=== PATIENT | male | born 1965 | race Caucasian/White ===

== ENCOUNTER → 2020-08-30 11:11 | Outpatient (CLI) | payer OTHER, SELFPAY ==
--- NOTE | 2020-08-30 | DI.MRI.S_ITS ---
PROCEDURE: MR CERVICAL SPINE WO CON INDICATIONS: Radiculopathy, cervical region TECHNIQUE: Noncontrast sagittal T1 spin echo and T2 fast spin echo, sagittal STIR, foraminal oblique sagittal T2 fast spin echo, and axial gradient echo or T2 fast spin echo through the cervical spine. COMPARISON: None. FINDINGS: Image quality: Excellent. Alignment and Curvature: Straightening of the normal lordotic curvature. Bone Marrow: No fracture. Multilevel degenerative endplate sclerosis and spurring. Diffuse facet arthropathy. Spinal Cord: Visualized spinal cord has normal size and signal. No cerebellar tonsillar herniation. Paraspinous Soft Tissues: No paravertebral masses. Prevertebral soft tissues are normal in thickness. C2-C3: Normal appearance. C3-C4: No canal or left foraminal stenosis. Mild right foraminal narrowing. C4-C5: Mild canal narrowing. Severe right foraminal stenosis with nerve root compression. Mild left foraminal narrowing. C5-C6: Mild canal narrowing. Severe right foraminal stenosis with nerve root compression. Mild left foraminal narrowing C6-C7: Minimal canal narrowing. Severe right foraminal stenosis with nerve root compression. Mild to moderate left-sided foraminal stenosis with nerve root compression. C7-T1: Normal appearance. IMPRESSION: Multilevel cervical spondylosis and facet arthropathy. No high-grade canal stenosis. Diffuse bilateral foraminal stenosis as detailed above, right greater than left at multiple levels as detailed above. Dictated by: Tariq Marcano M.D. on 08/30/2020 at 11:59 Approved by: Tariq Marcano M.D. on 08/30/2020 at 12:05
== END ==
PROVIDERS: PCP Family Medicine; Referring Provider Family Medicine; Visit Provider Family Medicine
DX: M47.22 Other spondylosis with radiculopathy, cervical region (principal); M48.02 Spinal stenosis, cervical region
CPT/HCPCS: 72141

== ENCOUNTER 2020-10-19 12:13 | Emergency (ER) | payer OTHER, SELFPAY ==
[2020-10-19 12:35] VITALS: BP 135/77; PULSE 61; RESP 14; TEMP 36.4; O2SAT 98; BMI 27.8
--- NOTE | 2020-10-19 12:40 | DI.RAD.S_ITS ---
PROCEDURE: XR LUMBAR SPINE 2-3V INDICATIONS: back pain TECHNIQUE: 3 views of the lumbar spine were acquired. COMPARISON: None. FINDINGS: Bones: 5 ewe-opn-buqatig vertebrae are present. There is trace L1-L2, L2-L3, L3-L4 and L4-L5 retrolisthesis. No vertebral body compression fractures. No suspicious bony lesions. Mild L1-L2, L2-L3 and L3-L4 and L4-L5 degenerative disc disease. Soft tissues: Overlying bowel gas pattern is normal. No suspicious soft tissue calcifications. IMPRESSION: 1. Multilevel degenerative disease. 2. No fracture. No acute osseous lesion. If symptoms and/or clinical suspicion for pathology persists, evaluation with MRI may be helpful for further assessment. Dictated by: Radha Ray MD, PhD on 10/19/2020 at 13:33 Approved by: Radha Ray MD, PhD on 10/19/2020 at 13:35
[2020-10-19] MEDS: KETOROLAC 60 MG/2 ML VIAL 30 MG IM (15:05)
[2020-10-19] MEDS: CYCLOBENZAPRINE 10 MG TABLET PO (15:05)
[2020-10-19] MEDS: LIDOCAINE PATCH 1 EACH ADH..PATCH TOP (15:06)
[2020-10-19] MEDS: HYDROCODONE/ACET 5/325 TABLET 1 TAB PO (16:04)
[2020-10-19 16:43] VITALS: BP 124/83; PULSE 52; RESP 16; O2SAT 99
--- NOTE | 2020-10-19 17:49 | ED.BACK ---
HPI - Back Pain/Injury <FAWN Abarca-BC - Last Filed: 10/19/20 17:57> General Chief Complaint: Back Pain/Injury Stated Complaint: lower back painn Time Seen by Provider: 10/19/20 13:58 Source: patient and family Mode of arrival: Ambulatory Limitations: no limitations History of Present Illness HPI Narrative: The patient is a 55-year-old male nonsmoker with history of neck pain who presents with a chief complaint of lower back pain. This has been ongoing since Friday. He denies any specific injuries or falls. He states that his pain goes across his lower back denies any numbness or tingling. Denies any incontinence of bowel or bladder. He took 600 mg of ibuprofen this morning with no relief. He states he has not had lower back pain like this before, but he is having a hard time sleeping due to the pain. Denies any history of kidney stones. He denies any dysuria urgency or frequency. He states that he felt better this morning, so he went to work at [employer] and then felt much worse. Related Data Home Medications Medication Instructions Recorded Confirmed metoprolol tartrate Unknown #0 10/19/17 Previous Rx's Medication Instructions Recorded prednisone 10 mg PO SEE INSTRUCTIONS 12 Days 10/19/17 #0 tab cyclobenzaprine 10 mg PO TID PRN #20 tab 10/19/20 hydrocodone-acetaminophen [[place]] 1 tab PO Q4-6H PRN #14 tab 10/19/20 ketorolac 10 mg PO TID PRN #14 tab 10/19/20 lidocaine 1 patch TOPICAL DAILY PRN #15 ea 10/19/20 Allergies Allergy/AdvReac Type Severity Reaction Status Date / Time Penicillins [PENICILLINS] Allergy Unknown Verified 10/19/20 12:37 Review of Systems <JESSICA AbarcaBC - Last Filed: 10/19/20 17:57> Review of Systems Narrative: GENERAL: Denies chills, fatigue, malaise, fever, sweats. HEENT: Denies sinus pain, ear pain, sore throat, difficulty swallowing, dizziness. RESPIRATORY: Denies dyspnea, cough, wheezing, hemoptysis, sputum. CARDIOVASCULAR: Denies chest pain, palpitations, orthopnea, edema, GASTROINTESTINAL: Denies nausea, vomiting, abdominal pain, diarrhea, constipation, melena. : Denies dysuria, frequency, incontinence, hematuria, urinary retention. MUSCULOSKELETAL: See HPI SKIN: Denies rash, skin lesions, or other NEUROLOGIC: Denies weakness, headache, numbness, change in speech, confusion, seizures, incoordination. PSYCHIATRIC: No concerning psychosocial issues. 12 point review of systems is negative except for those stated above Patient History <FAWN Abarca- - Last Filed: 10/19/20 17:57> Social History Smoking Status: Unknown if ever smoked Smoking Status: Unknown if ever smoked alcohol intake frequency: holidays/special occasions only Substance Use Type: does not use Exam <FAWN Abarca- - Last Filed: 10/19/20 17:57> Narrative Exam Narrative: GENERAL: This is a well-nourished, well-developed patient, appears uncomfortable. HEAD: Atraumatic. Normocephalic. No temporal or scalp tenderness. EYES: Pupils equal round and reactive. Extraocular motions intact. No scleral icterus. No injection or drainage. ENT: Nose without bleeding, purulent drainage or septal hematoma. Wearing a mask Airway patent. NECK: Trachea midline. No JVD or lymphadenopathy. Supple, nontender, no meningeal signs. CARDIOVASCULAR: Regular rate and rhythm RESPIRATORY: Clear to auscultation. Breath sounds equal bilaterally. No wheezes, rales, or rhonchi. No cough. No increased respiratory effort. No accessory muscle use. GASTROINTESTINAL: Abdomen soft, non-tender, nondistended. No hepato-splenomegaly, or palpable masses. No guarding. EXTREMITIES: No clubbing, cyanosis, or edema. No joint tenderness, effusion, or edema noted. BACK: No pain to C or T-spine palpation. No palpable step-offs or deformities. Diffuse tenderness to lumbar spine palpation as well as paraspinal muscle palpation Without deformity or crepitance. No flank tenderness. NEURO: AOx3. Stable gait. Strength is equal upper lower extremities bilaterally. Clear speech. SKIN: No rash or erythema on visible skin. No laceration abrasion or rash noted lower back. Initial Vital Signs Initial Vital Signs: Vital Signs Temperature 97.6 F 10/19/20 12:35 Pulse Rate 61 10/19/20 12:35 Respiratory Rate 14 10/19/20 12:35 Blood Pressure 135/77 10/19/20 12:35 Pulse Oximetry 98 10/19/20 12:35 <Samira Escoto DO - Last Filed: 10/20/20 07:22> Initial Vital Signs Initial Vital Signs: Vital Signs Temperature 97.6 F 10/19/20 12:35 Pulse Rate 61 10/19/20 12:35 Respiratory Rate 14 10/19/20 12:35 Blood Pressure 135/77 10/19/20 12:35 Pulse Oximetry 98 10/19/20 12:35 Scores <CHRISTIANO Abarca - Last Filed: 10/19/20 17:57> GCS Mitch coma scale eye opening: Spontaneous [place] coma scale verbal response: Orientated [place] coma scale motor response: Obey commands Mitch coma scale total score: 15 Course <CHRISTIANO Abarca - Last Filed: 10/19/20 17:57> Orders Ordered: Discontinued Medications Hydrocodone Bitart/Acetaminophen (Hydrocodone/Acet 5/325 Tablet) 1 tab PO NOW ONE Stop: 10/19/20 15:54 Last Admin: 10/19/20 16:04 Dose: 1 tab Documented by: ADIEL Cyclobenzaprine HCl (Cyclobenzaprine 10 Mg Tablet) 10 mg PO NOW ONE Stop: 10/19/20 15:00 Last Admin: 10/19/20 15:05 Dose: 10 mg Documented by: ADIEL Ketorolac Tromethamine (Ketorolac 60 Mg/2 Ml Vial) 30 mg IM NOW ONE Stop: 10/19/20 15:00 Last Admin: 10/19/20 15:05 Dose: 30 mg Documented by: ADIEL Lidocaine (Lidocaine Patch 1 Each Adh..Patch) 1 each TOP NOW ONE Stop: 10/19/20 15:00 Last Admin: 10/19/20 15:06 Dose: 1 each Documented by: ADIEL Vital Signs Vital signs: Vital Signs - 8 hr 10/19/20 12:35 10/19/20 16:43 Temperature 97.6 F Pulse Rate 61 52 L Respiratory Rate 14 16 Blood Pressure 135/77 124/83 Pulse Oximetry 98 99 <Samira Escoto DO - Last Filed: 10/20/20 07:22> Orders Ordered: Discontinued Medications Hydrocodone Bitart/Acetaminophen (Hydrocodone/Acet 5/325 Tablet) 1 tab PO NOW ONE Stop: 10/19/20 15:54 Last Admin: 10/19/20 16:04 Dose: 1 tab Documented by: ADIEL Cyclobenzaprine HCl (Cyclobenzaprine 10 Mg Tablet) 10 mg PO NOW ONE Stop: 10/19/20 15:00 Last Admin: 10/19/20 15:05 Dose: 10 mg Documented by: ADIEL Ketorolac Tromethamine (Ketorolac 60 Mg/2 Ml Vial) 30 mg IM NOW ONE Stop: 10/19/20 15:00 Last Admin: 10/19/20 15:05 Dose: 30 mg Documented by: ADIEL Lidocaine (Lidocaine Patch 1 Each Adh..Patch) 1 each TOP NOW ONE Stop: 10/19/20 15:00 Last Admin: 10/19/20 15:06 Dose: 1 each Documented by: ADIEL Vital Signs Vital signs: Vital Signs - 8 hr 10/19/20 12:35 10/19/20 16:43 Temperature 97.6 F Pulse Rate 61 52 L Respiratory Rate 14 16 Blood Pressure 135/77 124/83 Pulse Oximetry 98 99 MDM - Back Pain/Injury <FAWN Abarca- - Last Filed: 10/19/20 17:57> Lab Data Labs: Urine Dip Bedside Urine Glucose Negative Bedside Urine Bilirubin - Negative Bedside Urine Ketone - Negative Urine Specific [place] 1.030 Bedside Urine Occult Blood - Negative Bedside Urine Protein - Negative Bedside Urine Urobilinogen - Negative Bedside Urine Nitrite - Negative Bedside Urine Leukocytes - Negative Esterase Imaging Data Lumbar x-ray: Radiologist's Impression: [address] [place] [id number] ReportSigned Patient: Abel Anne JMR#: [id number]: [id number]:[id number]/Sex: 55 / MDate of Service: 10/19/20Loc: EDAccession Number: [id number] Procedure: XR lumbar spine 2-3V Ordering Provider: Samira Escoto D.O. PROCEDURE: XR LUMBAR SPINE 2-3V INDICATIONS: back pain TECHNIQUE: 3 views of the lumbar spine were acquired. COMPARISON: None. FINDINGS: Bones: 5 msg-rxy-cauwlvy vertebrae are present. There is trace L1-L2, L2-L3, L3-L4 and L4-L5 retrolisthesis. No vertebral body compression fractures. No suspicious bony lesions. Mild L1-L2, L2-L3 and L3-L4 and L4-L5 degenerative disc disease. Soft tissues: Overlying bowel gas pattern is normal. No suspicious soft tissue calcifications. IMPRESSION: 1. Multilevel degenerative disease. 2. No fracture. No acute osseous lesion. If symptoms and/or clinical suspicion for pathology persists, evaluation with MRI may be helpful for further assessment. Dictated by: Radha Ray MD, PhD on 10/19/2020 at 13:33 Approved by: Radha Ray MD, PhD on 10/19/2020 at 13:35 [facility] Narrative Medical decision making narrative: The patient is a 55-year-old male who presents with a chief complaint of lower back pain. He denies any incontinence of bowel, incontinence of bladder or saddle anesthesia, but he and his state understanding that these are strict return precautions. He feels much improved after the above-stated therapies with given prescriptions are of. I discussed at length coming back to the ER for acute concerns as well follow-up with primary care provider in the next few days. He may benefit from physical therapy. I discussed at length rest. Discussed not combining ketorolac with any other NSAIDs, discussed that [place] can be constipating and sedating, discussed Flexeril can be sedating. Discussed at length follow up with primary care provider coming back to the ER for acute concerns. Patient and have no questions or concerns upon discharge and states understanding of return precautions as well as follow-up care <Samira Escoto DO - Last Filed: 10/20/20 07:22> Lab Data Labs: Urine Dip Bedside Urine Glucose Negative Bedside Urine Bilirubin - Negative Bedside Urine Ketone - Negative Urine Specific [place] 1.030 Bedside Urine Occult Blood - Negative Bedside Urine Protein - Negative Bedside Urine Urobilinogen - Negative Bedside Urine Nitrite - Negative Bedside Urine Leukocytes - Negative Esterase Discharge Plan Departure Patient Disposition: Home Clinical Impression: Muscle spasm Acute back pain Qualifiers: Back pain location: low back pain Back pain laterality: bilateral Sciatica presence: without sciatica Qualified Code(s): M54.5 - Low back pain Instructions: DI for Low Back Pain, DI for Back Spasm, DI for Back Strain or Sprain Activity Restrictions/Additional Instructions: As I discussed, your x-ray shows no acute fracture. This does not rule out a soft tissue injury such as a ligament or tendon injury. It is important that you follow up with primary care provider, especially if worsening or no improvement. There can be fractures that did not show up on initial x-ray. I have given you a prescription of Toradol. This is an NSAID. Do not combine it with other NSAIDs such as Aleve or ibuprofen. I suggest taking it with some food, as it can irritate your stomach. The cyclobenzaprine or Flexeril as a muscle relaxer which can also be sedating. I have given you a prescription of a narcotic for pain. Be aware that this can be constipating and sedating. I encouraged taking with a stool softener, pushing fluids and fiber. Do not take and drive, operate heavy machinery, etc. Do not combine it with any other sedating substances such as alcohol. The combination of narcotics and alcohol and/or other sedatives can be lethal. Please follow-up with primary care provider in the next 48-72 hours. Please rest over the next few days. As discussed, please come back to emergency department for any acute concerns such as incontinence of bowel, incontinence of bladder or numbness in your groin Prescriptions: New lidocaine 5 % adhesive patch,medicated 1 patch topical DAILY PRN (Reason: pain) Qty: 15 RF: 0 cyclobenzaprine 10 mg tablet 10 mg PO TID PRN (Reason: muscle spasm) Qty: 20 RF: 0 hydrocodone-acetaminophen [[place]] 5-325 mg tablet 1 tab PO Q4-6H PRN (Reason: pain) Qty: 14 RF: 0 ketorolac 10 mg tablet 10 mg PO TID PRN (Reason: pain) Qty: 14 RF: 0 No Action metoprolol tartrate 50 MG tablet Unknown Qty: 0 RF: 0 prednisone 10 MG tablet 10 mg PO SEE INSTRUCTIONS 12 Days Qty: 0 RF: 0 Referrals: Darcy Suárez DO [Primary Care Provider] - Stand Alone Forms: Work Release Note <Samira Escoto DO - Last Filed: 10/20/20 07:22> [facility] Att[facility]: I was immediately available in the department for consultation. Documentation has been reviewed. I agree with assessment and plan.
== END 2020-10-19 17:14 | disposition home or self-care (01) ==
PROVIDERS: Emergency Provider Nurse Practitioner Family; PCP Family Medicine
DX: M62.830 Muscle spasm of back (principal); M54.5 Low back pain
CPT/HCPCS: 72100; 81003; 96372; 99281; 99283; STOP; J1885

== ENCOUNTER → 2021-08-04 11:13 | Outpatient (CLI) | payer OTHER, SELFPAY ==
--- NOTE | 2021-08-04 11:16 | DI.MRI.S_ITS ---
PROCEDURE: MR SHOULDER LT WO CON INDICATIONS: Pain in left shoulder TECHNIQUE: Noncontrast oblique coronal T2 fast spin echo with fat saturation, oblique sagittal T1 spin echo and T2 fast spin echo with fat saturation, axial T1 spin echo and T2 fast spin echo with fat saturation through the shoulder. COMPARISON: [facility], CR, SHOULDER MIN 2VW (RT), 11/04/2013, 16:42. [facility] [place], CR, XR SHOULDER 2+ VIEWS LEFT, 07/03/2021, 14:01. FINDINGS: Image quality: Excellent. Rotator cuff: There is partial-thickness tear of the supraspinatus tendon involving the bursal surface and the footprint. There is thickening and irregularity of the subscapularis tendon consistent with tendinitis. Sagittal images demonstrate no rotator cuff muscle atrophy. Bones and bursae: No bone marrow contusions or fractures. Mild acromioclavicular joint degeneration. The acromion demonstrates conventional anatomy, without an os acromiale. There is a small amount of subcoracoid bursal fluid. Capsule and soft tissues: There is degenerative labral fraying involving both anterior and posterior labrum. The long head of the biceps tendon demonstrates normal location and morphology. The rotator interval appears irregular. The coracohumeral ligament is thickened. IMPRESSION: 1. Partial thickness tear of the supraspinatus tendon involving the bursal surface and footprint. 2. Subscapularis tendinitis. 3. Small amount of subcoracoid bursal fluid consistent with bursitis. 4. Degenerative labral fraying. 5. Irregular rotator interval and thickening of the coracohumeral ligament. The findings are associated with adhesive capsulitis. Recommend clinical correlation. Dictated by: Jacquie Pak M.D. on 08/07/2021 at 13:17 Approved by: Jacquie Pak M.D. on 08/07/2021 at 13:26
== END ==
PROVIDERS: PCP Family Medicine; Referring Provider Family Medicine; Visit Provider Family Medicine
DX: M25.512 Pain in left shoulder (principal); M75.112 Incomplete rotator cuff tear or rupture of left shoulder, not specified as traumatic; M77.8 Other enthesopathies, not elsewhere classified
CPT/HCPCS: 73221